=== PATIENT | male | born 1960 | race Caucasian/White ===

== ENCOUNTER → 2016-10-23 | Outpatient (CLI) | payer OTHER ==
[~2016-10-23] MED LIST: ASPI81TA25 PO; ASPI81TA28 PO; ATEN50TA PO; CITA20TA4 PO; CRS/10 PO; FURO20TA PO; MELO7.5T5 PO; OPTIRAY 320 IV PRN; OXGN; PANT40TA PO; SYN25 PO; ZNT/150 PO
--- NOTE | 2016-10-23 17:26 | DIAGNOSTIC IMAGING REPORT ---
CT ANGIOGRAM OF THE CHEST CLINICAL HISTORY: Atypical chest pain POSITIVE D-DIMER COMPARISON STUDY: 03/30/2013 TECHNIQUE: Following the IV administration of 101 mL of Optiray-320, CT angiogram of the thorax was performed from the thoracic inlet to the lung bases utilizing the pulmonary embolus protocol. Images are reviewed in the axial, sagittal, and coronal planes. IV contrast was administered without complication. MIP imaging was performed. CT DOSE: 720.16 mGy.cm FINDINGS: Mediastinal lymph nodes are the upper limits of normal in size. There is no pathologic adenopathy by size criteria. There was no evidence of thoracic aortic dilatation. There were no pulmonary artery filling defects to indicate acute pulmonary embolism. No pleural effusions are visualized. There is no evidence of focal pulmonary consolidation. There is minor dependent atelectasis. There is a calcified right upper lobe granuloma. There is a 17 mm right middle lobe paramediastinal lung cyst. IMPRESSION: 1. No acute intrathoracic findings 2. No CT evidence of acute pulmonary embolism 3. No evidence of focal pulmonary consolidation Electronically signed by: Jf Pimentel M.D. 10/23/2016 5:24 PM Dictated Date/Time: 10/23/2016 5:17 PM
== END | disposition home or self-care (01) ==
LOC: C.CTS 16:56
PROVIDERS: ATTEND Family Medicine
DX: R79.89 Other specified abnormal findings of blood chemistry (principal)

== ENCOUNTER → 2016-10-23 | Outpatient (CLI) | payer OTHER ==
[~2016-10-23] MED LIST changes: -OPTIRAY 320 IV PRN
== END | disposition home or self-care (01) ==
LOC: C.LAB 13:59
PROVIDERS: ATTEND Family Medicine
DX: R06.09 Other forms of dyspnea (principal)

== ENCOUNTER 2016-10-24 10:53 | Emergency (ER) | payer OTHER ==
[~2016-10-24] VITALS: Ht 177.8 cm; Wt 114.5 kg
[~2016-10-24 10:53] MED LIST changes: -ASPI81TA28 PO; -CRS/10 PO; -FURO20TA PO; -MELO7.5T5 PO; -OXGN; -PANT40TA PO; -SYN25 PO
[2016-10-24 10:55] VITALS: TEMP 36.7; Ht 177.8 cm; Wt 114.5 kg
[2016-10-24] MEDS ORDERED: MELO7.5T5 PO (11:15)
[2016-10-24] MEDS ORDERED: PANT40TA PO (11:15)
[2016-10-24] MEDS ORDERED: CRS/10 PO (11:15)
[2016-10-24] MEDS ORDERED: SYN25 PO (11:15)
[2016-10-24 11:22] VITALS: O2SAT 95
--- NOTE | 2016-10-24 11:27 | EMERGENCY ROOM VISIT NOTE ---
History First contact with patient: 11:02 Chief Complaint: SHORTNESS OF BREATH Stated Complaint: SOB,SWOLLEN ANKLES, DOCTOR REFERRED Nursing Triage Summary: pt reports he had out pt ct scan of chest that was negative for pe yesterday, pt also reports having out pt ekg, chest x-ray and blood work yesterday. pt reports last night he noticed increased swelling to bilat legs left greater than right. pt reports he has been short of breath since june and has been following with his pcp. pt reports recent dx of sleep apnea and thyroid problems. History of Present Illness The patient is a 56 year old male who presents to the Emergency Room with complaints of shortness of breath for the past 4 months that has gotten progressively worse, and bilateral lower extremity swelling since yesterday. Patient states he saw his PCP yesterday where he had an EKG, chest x-ray, blood work that were reportedly normal. Patient was also sent for a CT scan of the chest which was negative for PE yesterday. Patient states he has had a 30 pound weight gain over the past 4 months that is unexplained, noting 4 pound weight gain just over the past week. Patient noticed increased swelling to his left leg compared to the right and also complaining of pain in the back of his calf with walking, so was referred here by his PCP to be further evaluated for DVT. Patient denies any chest pain, palpitations, dizziness or syncope, abdominal pain, nausea/vomiting, diarrhea, constipation, dark urine or decreased urine output. Patient does note that 3 weeks ago he was diagnosed with hypothyroidism and severe sleep apnea, he has since been placed on Synthroid medication and has been using CPAP at night with improvement. Review of Systems A complete 10 point review of systems was reviewed with the patient with pertinent positives and negatives as per history of present illness. All else were negative. Past Medical/Surgical History Medical Problems: (1) Diabetes (2) Heart disease (3) Hypertension (4) Pneumonia Surgical Problems: (1) Hx of appendectomy Family History Hypertension Social History Smoking Status: Never Smoker Alcohol Use: occasionally Marital Status: Housing Status: lives with family Occupation Status: employed Current/Historical Medications Scheduled Atenolol (Tenormin), 50 MG PO DAILY Citalopram Hydrobromide (Citalopram Hydrobromide), 40 MG PO DAILY Furosemide (Lasix), 1 TAB PO DAILY Levothyroxine Sodium (Synthroid), 25 MCG PO QAM Meloxicam (Mobic), 15 MG PO DAILY Pantoprazole (Protonix), 40 MG PO DAILY Rosuvastatin Calcium (Crestor), 10 MG PO DAILY Allergies Coded Allergies: Adhesives (Unverified Allergy, Unknown, TAPE= RASH, 10/24/16) Physical Exam Vital Signs Date Time Temp Pulse Resp B/P (MAP) Pulse Ox O2 Delivery O2 Flow Rate FiO2 10/24/16 13:31 70 18 141/85 94 10/24/16 12:09 70 10/24/16 12:08 71 20 132/76 94 Room Air 10/24/16 11:22 95 Room Air 10/24/16 11:09 Room Air 10/24/16 10:55 36.7 79 20 156/90 96 Room Air Physical Exam CONSTITUTIONAL: No acute distress. Well appearing and well nourished. Alert and oriented X 4 with normal affect. HEENT: Normocephalic, atraumatic. Pupils equal, round and reactive to light, EOMI. TMs normal. Pharynx normal. Moist mucous membranes NECK: Supple, full active range of motion without discomfort. RESPIRATORY: Clear to auscultation bilaterally with no wheezing, crackles, rhonchi or stridor. Equal expansion bilaterally. CARDIOVASCULAR: Regular rate and rhythm with no murmurs, rubs or gallops. Normal peripheral perfusion. Bilateral lower extremity edema noted from knees down, 2+ in the right leg, 3+ in the left leg, nonpitting. GASTROINTESTINAL: Soft, nontender. Distended with positive fluid wave. Bowel sounds present in all quadrants. MUSCULOSKELETAL: Full range of motion of all joints without discomfort. Positive Homans sign in the left calf. INTEGUMENTARY: No rash or other significant dermatologic conditions noted. NEUROLOGIC: Cranial nerves II-XII grossly intact. No focal neurologic deficits noted. Medical Decision & Procedures ER Provider Diagnostic Interpretation: LEFT VENOUS DOPP LOWER EXT UNILAT HISTORY: EVALUATE FOR DVT, bilat swelling, L>R TECHNIQUE: Multiple real-time sonographic images of the deep venous structures of the lower extremities were obtained assessing matute scale, color Doppler flow and spectral waveform appearance. FINDINGS: LEFT LOWER EXTREMITY: The common femoral, profunda femoral, femoral, popliteal and greater saphenous veins demonstrated complete compressibility with external transducer pressure. Peroneal and anterior tibial veins also appear normal, however not well seen. IMPRESSION: No sonographic evidence of deep venous thrombosis. Laboratory Results 10/24/16 11:25 Red Blood Count 5.02, Mean Corpuscular Volume 86.7, Mean Corpuscular Hemoglobin 29.1, Mean Corpuscular Hemoglobin Concent 33.6, Mean Platelet Volume 11.0, Neutrophils (%) (Auto) 64.9, Lymphocytes (%) (Auto) 22.9, Monocytes (%) (Auto) 9.4, Eosinophils (%) (Auto) 2.3, Basophils (%) (Auto) 0.2, Neutrophils # (Auto) 3.72, Lymphocytes # (Auto) 1.31, Monocytes # (Auto) 0.54, Eosinophils # (Auto) 0.13, Basophils # (Auto) 0.01 10/24/16 11:25 Test 10/24/16 11:25 10/24/16 12:50 White Blood Count 5.73 K/uL (4.8-10.8) Red Blood Count 5.02 M/uL (4.7-6.1) Hemoglobin 14.6 g/dL (14.0-18.0) Hematocrit 43.5 % (42-52) Mean Corpuscular Volume 86.7 fL (80-100) Mean Corpuscular Hemoglobin 29.1 pg (25-34) Mean Corpuscular Hemoglobin Concent 33.6 g/dl (32-36) Platelet Count 199 K/uL (130-400) Mean Platelet Volume 11.0 fL (7.4-10.4) Neutrophils (%) (Auto) 64.9 % Lymphocytes (%) (Auto) 22.9 % Monocytes (%) (Auto) 9.4 % Eosinophils (%) (Auto) 2.3 % Basophils (%) (Auto) 0.2 % Neutrophils # (Auto) 3.72 K/uL (1.4-6.5) Lymphocytes # (Auto) 1.31 K/uL (1.2-3.4) Monocytes # (Auto) 0.54 K/uL (0.11-0.59) Eosinophils # (Auto) 0.13 K/uL (0-0.5) Basophils # (Auto) 0.01 K/uL (0-0.2) RDW Standard Deviation 43.7 fL (36.4-46.3) RDW Coefficient of Variation 13.8 % (11.5-14.5) Immature Granulocyte % (Auto) 0.3 % Immature Granulocyte # (Auto) 0.02 K/uL (0.00-0.02) Prothrombin Time 11.4 SECONDS (9.0-12.0) Prothromb Time International Ratio 1.1 (0.9-1.1) Activated Partial Thromboplast Time 28.0 SECONDS (21.0-31.0) Partial Thromboplastin Ratio 1.1 Anion Gap 6.0 mmol/L (3-11) Est Creatinine Clear Calc Drug Dose 82.3 ml/min Estimated GFR () 71.7 Estimated GFR (Non- 61.9 BUN/Creatinine Ratio 9.6 (10-20) Calcium Level 9.3 mg/dl (8.5-10.1) Total Bilirubin 0.4 mg/dl (0.2-1) Aspartate Amino Transf (AST/SGOT) 24 U/L (15-37) Alanine Aminotransferase (ALT/SGPT) 45 U/L (12-78) Alkaline Phosphatase 72 U/L (45-117) Troponin I < 0.015 ng/ml (0-0.045) Pro-B-Type Natriuretic Peptide 179 pg/ml (0-900) Total Protein 7.8 gm/dl (6.4-8.2) Albumin 4.0 gm/dl (3.4-5.0) Globulin 3.8 gm/dl (2.5-4.0) Albumin/Globulin Ratio 1.1 (0.9-2) Urine Color YELLOW Urine Appearance CLEAR (CLEAR) Urine pH 7.0 (4.5-7.5) Urine Specific Gilchrist 1.015 (1.000-1.030) Urine Protein NEG (NEG) Urine Glucose (UA) NEG (NEG) Urine Ketones NEG (NEG) Urine Occult Blood NEG (NEG) Urine Nitrite NEG (NEG) Urine Bilirubin NEG (NEG) Urine Urobilinogen NEG (NEG) Urine Leukocyte Esterase TRACE (NEG) Urine WBC (Auto) 1-5 /hpf (0-5) Urine RBC (Auto) 0-4 /hpf (0-4) Urine Hyaline Casts (Auto) 0 /lpf (0-5) Urine Epithelial Cells (Auto) 0-5 /lpf (0-5) Urine Bacteria (Auto) NEG (NEG) ECG Indication: SOB/dyspnea Rate (beats per minute): 73 Rhythm: normal sinus Findings: no acute ischemic change, no ectopy Change: no significant change (12/20/2015) Medical Decision CC: Patient presenting with complaint of shortness of breath and bilateral lower extremity edema Interpretation of Labs: No leukocytosis, not anemic, no significant electrolyte abnormalities, renal function at baseline for patient. Troponin and BNP are negative. Urinalysis is unremarkable. Differential Diagnosis: Includes, but not limited to peripheral edema, DVT, congestive heart failure, acute IA, acute kidney injury, electrolyte abnormality , among others. Medication Reconciliation: I attest that I have personally reviewed the patient' s current medication list. Vital signs review: I reviewed the patient's vital signs and interpret them as follows: T: Afebrile; BP: Hypertensive; HR: Within normal limits; RR: Within normal limits; Pulse Ox: Within normal limits on room air. Blood pressure screening: The patient was found to have an elevated blood pressure and was referred to their primary doctor for recheck and further treatment. Summary: Patient was evaluated at bedside, history of physical exam performed. The patient is alert and in no acute distress. Lungs are clear, no wheezing or crackles, not tachypneic, no accessory muscle use, normal sats on room air. Bilateral lower extremities with edema, nonpitting, left greater than right. Positive Homans sign on the left calf. Orders were placed at bedside for labs, UA, EKG, venous duplex to evaluate for DVT. Patient discussed with Dr. Bernardo, who agrees with my assessment and plan. Labs reviewed, no acute abnormalities. EKG reviewed, normal sinus rhythm and unchanged from previous. Venous duplex is negative for DVT. I spoke on the phone with Dr. Bull, patient's PCP, who agrees with my plan to place patient on low dose Lasix for 5 days. Patient to follow closely with him next week. Patient reassessed multiple times throughout ED stay, he states he is feeling somewhat better. I updated patient on all results and plan for discharge and follow-up, as well as return precautions, he verbalized understanding. Patient was discharged home in stable condition. Impression Primary Impression: Bilateral lower extremity edema Additional Impression: STEPHENSON (dyspnea on exertion) Departure Information Dispostion Home / Self-Care Condition GOOD Prescriptions Furosemide (LASIX) 20 Mg Tab 1 TAB PO DAILY for 5 Days, #5 TAB Prov: Eliza Bejarano CRNP 10/24/16 Referrals Renato Bull III, M.D. (PCP) Patient Instructions ED Leg Swelling Bilateral, My [facility] Additional Instructions Call your PCPs office today to schedule a follow-up appointment early next week. Start taking the Lasix one tablet daily, to help reduce swelling. This medication should be taken early in the day, as it will cause you to have increased urination. Please return to the ER for worsening symptoms, including chest pain, severe dizziness or passing out, increased shortness of breath, coughing up blood, fevers/chills/feeling ill, or any other concerns. Problem Qualifiers
[2016-10-24 11:52] LABS: BASO % 0.2 %; BASO ABS # 0.01 K/uL (0-0.2); COMPLETE YES; EOS % 2.3 %; HEMATOCRIT 43.5 % (42-52); IG% 0.3 %; LYMPH % 22.9 %; LYMPH ABS # 1.31 K/uL (1.2-3.4); MEAN CELL VOLUME 86.7 fL (80-100); MEAN CORPUSCULAR HEMOGLOBIN 29.1 pg (25-34); MEAN CORPUSCULAR HGB CONC 33.6 g/dl (32-36); MONO % 9.4 %; NEUT % 64.9 %; PLATELET COUNT 199 K/uL (130-400); RED BLOOD COUNT 5.02 M/uL (4.7-6.1); WHITE BLOOD COUNT 5.73 K/uL (4.8-10.8)
[2016-10-24 12:03] LABS: INR 1.1 (0.9-1.1); PARTIAL THROMBOPLASTIN RATIO 1.1; PROTHROMBIN TIME (PATIENT) 11.4 SECONDS (9.0-12.0)
[2016-10-24 12:08] LABS: ALT/SGPT 45 U/L (12-78); BLOOD UREA NITROGEN 13 mg/dl (7-18); BUN/CREATININE RATIO 9.6 (10-20); CALCIUM 9.3 mg/dl (8.5-10.1); CARBON DIOXIDE 28 mmol/L (21-32); CHLORIDE 106 mmol/L (98-107); GLUCOSE 83 mg/dl (70-99); POTASSIUM 4.1 mmol/L (3.5-5.1); SODIUM 140 mmol/L (136-145)
--- NOTE | 2016-10-24 12:08 | DIAGNOSTIC IMAGING REPORT ---
LEFT VENOUS DOPP LOWER EXT UNILAT HISTORY: EVALUATE FOR DVT, bilat swelling, L>R TECHNIQUE: Multiple real-time sonographic images of the deep venous structures of the lower extremities were obtained assessing matute scale, color Doppler flow and spectral waveform appearance. FINDINGS: LEFT LOWER EXTREMITY: The common femoral, profunda femoral, femoral, popliteal and greater saphenous veins demonstrated complete compressibility with external transducer pressure. Peroneal and anterior tibial veins also appear normal, however not well seen. IMPRESSION: No sonographic evidence of deep venous thrombosis. Electronically signed by: Jace Reyes 10/24/2016 12:06 PM Dictated Date/Time: 10/24/2016 12:04 PM
[2016-10-24 12:13] LABS: ALB/GLOB RATIO 1.1 (0.9-2); ALKALINE PHOSPHATASE 72 U/L (45-117); AST/SGOT 24 U/L (15-37)
[2016-10-24 13:03] LABS: URINE APPEARANCE CLEAR (CLEAR); URINE BILIRUBIN NEG (NEG); URINE COLOR YELLOW; URINE EPITHELIAL CELL AUTO 0-5 /lpf (0-5); URINE NITRITE NEG (NEG); URINE SPECIFIC GRAVITY 1.015 (1.000-1.030); UROBILINOGEN NEG (NEG)
[2016-10-24 13:13] LABS: MANUAL MICROSCOPIC REQUIRED? NO; REVIEW REQ? NO
[2016-10-24] MEDS ORDERED: FURO20TA PO (13:23)
[2016-10-24 13:31] VITALS: BP 141/85; PULSE 70; O2SAT 94
[2016-11-19] MEDS ORDERED: OXGN (06:53)
[2016-11-19] MEDS ORDERED: ASPI81TA28 PO (06:53)
== END 2016-10-24 13:32 | disposition home or self-care (01) ==
LOC: C.EDB 10:54
DX: R60.0 Localized edema (principal); R06.00 Dyspnea, unspecified; G47.30 Sleep apnea, unspecified; E03.9 Hypothyroidism, unspecified; Z79.899 Other long term (current) drug therapy; E11.9 Type 2 diabetes mellitus without complications; I10 Essential (primary) hypertension; Z87.01 Personal history of pneumonia (recurrent); Z82.49 Family history of ischemic heart disease and other diseases of the circulatory system

== ENCOUNTER → 2016-11-19 | Day surgery (SDC) | payer OTHER ==
[~2016-11-19] VITALS: Ht 180.3 cm; Wt 115.1 kg
[~2016-11-19] MED LIST changes: -ASPI81TA25 PO; +ASPI81TA28 PO; +CRS/10 PO; +FENTANYL CITRATE INJ 50 MCG/1 ML 2 ML VIAL ONE; +FURO20TA PO; +HEPARIN SOD (PORCINE) 1000 UNIT/ML 10 ML VIAL ONE; +MELO7.5T5 PO; +MIDAZOLAM HCL 1 MG/ML 2ML VIAL ONE; +NITROGLYCERIN/D5W 100MCG/ML 20ML SYR ONE; +NiCARDipine HCL INJ 2.5 MG/ML 10 ML AMP ONE; +ONDANSETRON INJ 2 MG/ML 2 ML VIAL ONE; +OXGN; +PANT40TA PO; +SYN25 PO; -ZNT/150 PO
[2016-11-19 09:01] VITALS: Ht 180.3 cm; Wt 115.1 kg
[2016-11-19 09:04] VITALS: BP 136/96; PULSE 72; TEMP 36.5; O2SAT 98
--- NOTE | 2016-11-19 09:46 | Procedure Note ---
Pre-Mod Sedation Assessment General Date of Moderate Sedation: Nov 19, 2016. Vital Signs: Vital Signs Past 12 Hours Date Time Temp Pulse Resp B/P (MAP) Pulse Ox O2 Delivery O2 Flow Rate FiO2 11/19/16 09:04 36.5 72 18 136/96 98 Room Air Review Cardiovascular: regular rate, rhythm, no edema, no gallop Abdomen: normal bowel sounds, non tender, soft Lungs: chest non-tender, lungs clear, normal breath sounds Pre-Sedation Airway Assessment Oral Cavity: WNL Short Thick Neck: No Hx of Sleep Apnea: Yes Smoking Status: Never Smoker Mallampati Classification: Class III ASA Classification: Class III Procedure Planning Contraindications-for Mod Sed: None Yes Notes The planned sedation has been discussed with the patient and consent obtained. I have identified the patient, determined the appropriateness of sedation and have assessed the patient immediately prior to the procedure. All medicine(s) and interventions are by my order.
--- NOTE | 2016-11-19 09:46 | History & Physical Bridge Note ---
H&P Re-Evaluation Bridge Note: I have examined the patient, reviewed the History & Physical and in the interval since the performance of the History & Physical I have noted the following changes of clinical significance: No changes noted
--- NOTE | 2016-11-19 11:12 | Procedure Note ---
Post-Mod Sedation Assessment General Date of Moderate Sedation Nov 19, 2016. Vital Signs: Vital Signs Past 12 Hours Date Time Temp Pulse Resp B/P (MAP) Pulse Ox O2 Delivery O2 Flow Rate FiO2 11/19/16 11:01 65 18 105/80 (88) 95 Room Air 11/19/16 09:04 36.5 72 18 136/96 98 Room Air Review - Discharge Criteria Vital Signs Stable: Yes Alert/Oriented/Conversant: Yes Returned to Baseline Mental St: Yes Nausea Absent/Minimal: Yes Pain/Discomfort/Absent/Minimal: Yes Normal/Baseline Respirations: Yes Active Bleeding?: No Pt Received D/C Instructions: Yes Prescriptions Given: None Specific Proced. D/C Criteria Distal Pulses Present (Cardiac: Yes Groin site assessed-Card Cath: Yes Voided Prior To Discharge: Yes Discharged Patients Adult Escort/Transportation: Yes
--- NOTE | 2016-11-19 11:30 | Cardiac Catheterization ---
Procedure Note Procedure Date Nov 19, 2016. Pre-Procedure Diagnosis Cardiothoracic Symptom AUC Score 7 Post-Procedure Diagnosis Normal Coronary Arteries Procedure(s) Performed Coronary Angiography, Left Heart Cath Tennis Coach Dr. Floyd Remote Sensing Technician(s) Glunt INFORMATICS DEVELOPER Estimated Blood Loss 8cc Medication(s) Fentanyl, Heparin, Nicardipine, Nitroglycerin, Versed, Lidocaine 1% Summary of Findings Normal coronary arteries. Hemodynamics Rest Ao: 107/75/91 Final Ao: 112/62/79 LV: 120/8/12 Recommendations Medical therapy and/or Counseling Specimens None Radiation Exposure (mGy) 1805 Contrast (mls) 90 Fluids (cc crystalloids) 413 Anesthesia moderate sedation, Monitoring RN: Akiko Guzman, Start time: 957, End time:1101 Procedural Complication(s) None Disposition Flash Oven Operator Holding/Recovery ACC Data Cardiac Status Clinical evaluation leading to the procedure CAD Presntation: Positive Stress Test (Indeterminate stress test with high risk exertional symptoms.) Anginal Classification: CCS II Heart Failure: No Stress Echocardiogram: Yes - Indeterminant Coronary Anatomy Dominant: Right Left Main (% Stenosis): Normal LAD (% Stenosis): Normal (Type 1 vessel that does not pefuse the apex) D1 (% Stenosis): Normal Circumflex (% Stenosis): Normal OM1 (% Stenosis): Normal RCA (% Stenosis): Normal R PDA (% Stenosis): Normal R PL1 (% Stenosis): Normal R PL2 (% Stenosis): Normal AM (% Stenosis): Normal Diagnostic Status: Elective Closure Device Percutaneous Entry Location: Femoral (Unable to complete study via radial access to due excessive arm discomfort and radial artery spasm. Unable to pass 4Fr catheter via radial access.) Closure Device: Mynx (Radial band applied to arm) Recommendations: Medical therapy and/or Counseling Intraprocedure Events Significant Dissection: No Perforation: No
--- NOTE | 2016-11-19 11:33 | Discharge Instructions ---
Discharge Instructions Procedure Procedure Date: Nov 19, 2016. Reason for Visit: Abnormal Stress Echo, Sob *Dr Floyd Doing*. Discharge Discharge Date: Nov 19, 2016. Discharge Diagnosis: S/p cardiac catheterization. Normal coronary arteries. Last Recorded Wt (Kilograms): 115.1 Anesthesia Post Anesthesia Instructions: If you have had General Anesthesia or IV Sedation: * Do not drive today. * Resume driving when surgeon permits. * Do not make important decisions or sign legal documents today. * Call surgeon for: 1. Temperature elevations greater than 101 degrees F. 2. Uncontrollable pain. 3. Excessive bleeding. 4. Persistent nausea and vomiting. 5. Medication intolerance (nausea, vomiting or rash). * For nausea and vomiting use only clear liquids such as: tea, soda, bouillon until nausea subsides, then gradually increase diet as tolerated. * If you have any concerns or questions, call your surgeon's office. If physician is unavailable and it is an emergency, call 911 or go to the nearest emergency room. Instructions Activity Recommendations: limitations as noted below Return to School/Work: with the following limitations Recommended Home Diet: resume previous diet Allergies: Coded Allergies: Adhesives (Unverified Allergy, Unknown, TAPE= RASH, 10/24/16) Provider Instructions ACTIVITY RECOMMENDATIONS: It is common to feel weak and fatigue for a few days. * Do not drive or operate any motorized equipment for the next three days. * Limit stair usage (2 or 3 trips a day only) for the next three days. * Do not lift anything heavier than 10 pounds for the next three days. * Do not engage in vigorous exercise or any sports for the next five days. * You may shower the day after your procedure, but do not immerse the area for three days. Cleanse the site gently with soap and water. SPECIAL CARE INSTRUCTIONS: * You may replace the pressure dressing or band-aid the morning after the procedure. * After your procedure, it is normal to have a small bruise or small lump at the site. Examine your site daily for any change in the bruise or lump, redness, swelling, drainage or numbness. Notify your doctor if any change. BLEEDING: * If there is a small amount of bleeding at the site, lie down and apply firm pressure with a clean cloth for ten minutes. When the bleeding stops, lie quietly keeping the procedure limb straight for six hours. Notify your doctor as soon as possible. * If the bleeding does not stop after ten minutes or if there is a large amount of bleeding or spurting, call 911 immediately. Continue to lie down and hold firm pressure until help arrives. SKIN IRRITATION: * You may experience some redness and/or swelling in the area where radiation was administered. If any skin irritation occurs, please contact your family physician. FOLLOW UP VISIT: Keep any scheduled doctor appointments. Follow Up Follow-up with: Primary care physician as scheduled. [place] Recommendations: Call your doctor if: * Temperature above 101 degrees * Pain not relieved by pain medicine ordered * There is increased drainage or redness from any incision * You have any unanswered questions or concerns. Your Doctors Instructions noted above were prepared by provider Farrukh Floyd. Patient Signature Section: Patient Instructions Signature Page Hardeep Peterson Patient (or Guardian) Signature/Date: I have read and understand the instructions given to me by my caregivers. Caregiver/RN/Doctor Signature/Date: The above-named patient and/or guardian has received patient instructions on this date. + Original Patient Signature Page (only) stays with chart. Please make copy for patient.
[2016-11-19 15:00] VITALS: BP 125/73; PULSE 73; O2SAT 97
== END | disposition home or self-care (01) ==
LOC: C.CATH 07:53
PROVIDERS: ATTEND Internal Medicine Cardiovascular Disease
DX: R09.89 Other specified symptoms and signs involving the circulatory and respiratory systems (principal)

== ENCOUNTER → 2017-02-25 | Outpatient (CLI) | payer OTHER ==
[~2017-02-25] MED LIST changes: -ASPI81TA28 PO; -FENTANYL CITRATE INJ 50 MCG/1 ML 2 ML VIAL ONE; -HEPARIN SOD (PORCINE) 1000 UNIT/ML 10 ML VIAL ONE; -MIDAZOLAM HCL 1 MG/ML 2ML VIAL ONE; -NITROGLYCERIN/D5W 100MCG/ML 20ML SYR ONE; -NiCARDipine HCL INJ 2.5 MG/ML 10 ML AMP ONE; -ONDANSETRON INJ 2 MG/ML 2 ML VIAL ONE
[2017-02-25 17:09] LABS: THYROID STIMULATING HORMONE 1.45 uIu/ml (0.300-4.500)
== END | disposition home or self-care (01) ==
LOC: C.LAB1850 15:30
PROVIDERS: ATTEND Physician Assistant
DX: E03.9 Hypothyroidism, unspecified (principal)